=== PATIENT | male | born 1965 | race Two or more races ===

== ENCOUNTER 2017-04-23 09:08 | Emergency (ER) | payer OTHER ==
[~2017-04-23] VITALS: Ht 165.1 cm; Wt 79.4 kg
[2017-04-23 09:22] VITALS: BP 175/96
[2017-04-23] MEDS ORDERED: IPRATROPIUM BROM 0.5 MG/2.5ML INH SOL NEB ONE (12:45)
[2017-04-23] MEDS ORDERED: ALBUTEROL SULF 2.5 MG/0.5ML(0.5%) NEB SOLN NEB ONE (12:45)
== END 2017-04-23 13:34 | disposition home or self-care (01) ==
LOC: ER 09:08
DX: R06.02 Shortness of breath (principal); I10 Essential (primary) hypertension; F17.210 Nicotine dependence, cigarettes, uncomplicated
CPT/HCPCS: 71046; 94640

== ENCOUNTER 2017-05-21 21:25 | Emergency (ER) | payer OTHER ==
[~2017-05-21] VITALS: Ht 165.1 cm; Wt 82.6 kg
[2017-05-21 22:30] LABS: Eosinophils # (auto) 0 uL; Hemoglobin 11.1 g/dL (13.5-17.5); Lymphocytes # (auto) 1.4 uL; Mean Corpuscular Hgb Conc. 33.6 g/dL (32.0-36.0); Monocytes # (auto) 0.4 uL; Neutrophils # (auto) 4.5 uL; Red Blood Cells 3.13 10^6/uL (4.5-5.90)
[2017-05-21 22:32] LABS: Basophils # (auto) 0 uL; Basophils % (auto) 0.7 % (0.0-2.0); Hematocrit 32.9 % (41.0-53.0); Mean Corpuscular Hemoglobin 35.4 pg (28.0-32.0); Mean Corpuscular Volume 105.2 fL (80.0-100.0); Monocytes % (auto) 5.6 % (0.0-12.0); Neutrophils % (auto) 71.7 % (37.0-80.0); Nucleated Red Blood Cells % 0.2 %; Platelet Count (auto) 103 10^3/uL (140-450); Red Cell Distribution Width 14.9 % (11.8-14.3); White Blood Cell 6.3 10^3/uL (4.4-10.8)
[2017-05-21 22:47] LABS: INR 1.23 (0.9-1.15); Partial Thromboplastin Time 27.8 sec (22.64-33.71); Prothrombin Time 13.4 sec (9.37-12.3)
[2017-05-21 22:54] LABS: Alanine Aminotransferase 50 U/L (16-61); Albumin 3.5 g/dL (3.4-5.0); Alkaline Phosphatase 44 U/L (45-117); Anion Gap 10 (5-15); Aspartate Aminotransferase 85 U/L (15-37); BUN/Creatinine Ratio 28.7; Blood Urea Nitrogen 25 mg/dL (7-18); Calcium 8.9 mg/dL (8.5-10.1); Carbon Dioxide 24 mmol/L (21-32); Chloride 102 mmol/L (98-107); GFR African American 118 mL/min; GFR Non-African American 97 mL/min; Glucose 110 mg/dL (74-106); Magnesium 2.4 mg/dL (1.6-2.6); Potassium 4.6 mmol/L (3.5-5.1); Sodium 136 mmol/L (136-145); Total Protein 8.6 g/dL (6.4-8.2)
[2017-05-22] MEDS ORDERED: ALBUTEROL SULF 2.5 MG/0.5ML(0.5%) NEB SOLN NEB ONE (08:00)
[2017-05-22] MEDS ORDERED: IPRATROPIUM BROM 0.5 MG/2.5ML INH SOL NEB ONE (08:00)
[2017-05-22] MEDS ORDERED: PIPERACILLIN-TAZOB 3.375GM 50 ML IV ONE (10:15)
[2017-05-22 11:13] LABS: Urine Bacteria NONE SEEN /hpf (None Seen); Urine Blood Negative /uL (Negative); Urine Specific Gravity 1.022 (1.001-1.035); Urine WBC <1 /hpf (0 - 3)
[2017-05-22 11:44] VITALS: BP 155/90
== END 2017-05-22 11:16 | disposition home or self-care (01) ==
LOC: ER 21:25
DX: R06.02 Shortness of breath (principal); K82.9 Disease of gallbladder, unspecified; I10 Essential (primary) hypertension; F17.210 Nicotine dependence, cigarettes, uncomplicated; R53.1 Weakness
CPT/HCPCS: 36415; 71045; 74176; 76705; 80053; 81001; 83605; 83735; 83880; 84484; 85025; 85610; 85730; 87040; 93005; 94640; 96365; 99285; J2543

== ENCOUNTER 2017-06-17 12:29 | Emergency (ER) | payer OTHER ==
[~2017-06-17] VITALS: Ht 165.1 cm; Wt 79.4 kg
[2017-06-17 13:00] VITALS: BP 142/82
[2017-06-17] MEDS ORDERED: methylPREDNISolone SOD SUCC 125 MG/2 ML VL IM ONE (13:15)
[2017-06-17] MEDS ORDERED: IPRATROPIUM BROM 0.5 MG/2.5ML INH SOL NEB ONE (13:15)
[2017-06-17] MEDS ORDERED: ALBUTEROL SULF 2.5 MG/0.5ML(0.5%) NEB SOLN NEB ONE (13:15)
== END 2017-06-17 14:15 | disposition home or self-care (01) ==
LOC: ER 12:32
DX: J44.9 Chronic obstructive pulmonary disease, unspecified (principal); I10 Essential (primary) hypertension; F17.210 Nicotine dependence, cigarettes, uncomplicated
CPT/HCPCS: 93005; 94640; 96372; 99283; J2930

== ENCOUNTER 2017-06-27 18:16 | Emergency (ER) | payer OTHER ==
[~2017-06-27] VITALS: Ht 165.1 cm; Wt 84.4 kg
[2017-06-27] MEDS ORDERED: methylPREDNISolone SOD SUCC 125 MG/2 ML VL IM ONE (19:45)
[2017-06-27] MEDS ORDERED: ALBUTEROL SULF 2.5 MG/0.5ML(0.5%) NEB SOLN HHN ONE (19:45)
[2017-06-27] MEDS ORDERED: IPRATROPIUM BROM 0.5 MG/2.5ML INH SOL HHN ONE (19:45)
[2017-06-27] MEDS ORDERED: ACETAMINOPHEN 325 MG TAB PO ONE (20:45)
[2017-06-27 22:03] VITALS: BP 131/79
[2017-06-28] MEDS ORDERED: ENAL20TA70 PO (13:49)
[2017-06-28] MEDS ORDERED: SUCR1TAB38 OR (13:49)
[2017-06-28] MEDS ORDERED: METH10CO PO (15:04)
[2017-06-29] MEDS ORDERED: LEVO500T21 PO (10:52)
[2017-06-29] MEDS ORDERED: ALBUAER3 IN (10:53)
== END 2017-06-27 22:35 | disposition home or self-care (01) ==
LOC: ER 18:16
DX: J20.9 Acute bronchitis, unspecified (principal); I10 Essential (primary) hypertension; J44.9 Chronic obstructive pulmonary disease, unspecified; F17.210 Nicotine dependence, cigarettes, uncomplicated
CPT/HCPCS: 71046; 93005; 94644; 96372; 99285; J2930; 94640

== ENCOUNTER 2017-07-07 22:34 | Emergency (ER) | payer OTHER ==
[~2017-07-07] VITALS: Ht 165.1 cm; Wt 83.0 kg
[~2017-07-07 22:34] MED LIST: ALBUAER3 IN; ENAL20TA70 PO; LEVO500T21 PO; METH10CO PO; SUCR1TAB38 OR
[2017-07-08 01:30] LABS: Basophils # (auto) 0.1 uL; Eosinophils # (auto) 0.1 uL; Eosinophils % (auto) 1.3 % (0.0-7.0); Hematocrit 40.7 % (41.0-53.0); Hemoglobin 13.5 g/dL (13.5-17.5); Lymphocytes % (auto) 28.9 % (10.0-50.0); Mean Corpuscular Hemoglobin 33.7 pg (28.0-32.0); Mean Corpuscular Hgb Conc. 33.3 g/dL (32.0-36.0); Mean Corpuscular Volume 101.2 fL (80.0-100.0); Monocytes # (auto) 0.5 uL; Monocytes % (auto) 7.9 % (0.0-12.0); Neutrophils # (auto) 4.3 uL; Neutrophils % (auto) 60.9 % (37.0-80.0); Nucleated Red Blood Cells % 0.1 %; Platelet Count (auto) 138 10^3/uL (140-450); Red Blood Cells 4.02 10^6/uL (4.5-5.90); Red Cell Distribution Width 14.4 % (11.8-14.3)
[2017-07-08 01:49] LABS: Albumin 3.3 g/dL (3.4-5.0); BUN/Creatinine Ratio 9.8
[2017-07-08 01:51] LABS: Total Protein 7.9 g/dL (6.4-8.2)
[2017-07-08] MEDS ORDERED: SODIUM CHLORIDE 0.9% 1,000 ML IV ONE (08:14)
[2017-07-08 09:15] LABS: Magnesium 2.3 mg/dL (1.6-2.6)
[2017-07-08 11:32] VITALS: BP 129/86
== END 2017-07-08 12:53 | disposition home or self-care (01) ==
LOC: ER 22:42
DX: L03.115 Cellulitis of right lower limb (principal); B19.20 Unspecified viral hepatitis C without hepatic coma; F10.20 Alcohol dependence, uncomplicated; E46 Unspecified protein-calorie malnutrition; K76.1 Chronic passive congestion of liver; J44.9 Chronic obstructive pulmonary disease, unspecified; I10 Essential (primary) hypertension
CPT/HCPCS: 36415; 71046; 80053; 83735; 84443; 84484; 85025; 93005; 93971

== ENCOUNTER 2017-08-07 13:26 | Emergency (ER) | payer OTHER ==
[~2017-08-07] VITALS: Ht 165.1 cm; Wt 82.6 kg
[2017-08-07] MEDS ORDERED: SODIUM CHLORIDE 0.9% 500 ML IVB ONE (14:39)
[2017-08-07] MEDS ORDERED: PANTOPRAZOLE 40 MG/10 ML VIAL IV STA (14:39)
[2017-08-07] MEDS ORDERED: ONDANSETRON HCL 4 MG/2 ML VIAL IV ONE (14:45)
[2017-08-07] MEDS ORDERED: MORPHINE SULFATE 8mg/ml INJ SDV IV ONE (14:45)
[2017-08-07 14:48] LABS: Basophils # (auto) 0 uL; Basophils % (auto) 0.9 % (0.0-2.0); Eosinophils # (auto) 0 uL; Eosinophils % (auto) 0.1 % (0.0-7.0); Hematocrit 40.1 % (41.0-53.0); Hemoglobin 13.3 g/dL (13.5-17.5); Lymphocytes # (auto) 0.5 uL; Lymphocytes % (auto) 13.2 % (10.0-50.0); Mean Corpuscular Hemoglobin 33.5 pg (28.0-32.0); Mean Corpuscular Hgb Conc. 33.1 g/dL (32.0-36.0); Mean Corpuscular Volume 101.2 fL (80.0-100.0); Monocytes # (auto) 0.4 uL; Monocytes % (auto) 10.3 % (0.0-12.0); Neutrophils # (auto) 2.6 uL; Neutrophils % (auto) 75.5 % (37.0-80.0); Nucleated Red Blood Cells % 0.1 %; Platelet Count (auto) 105 10^3/uL (140-450); Red Blood Cells 3.96 10^6/uL (4.5-5.90); Red Cell Distribution Width 14.6 % (11.8-14.3); White Blood Cell 3.5 10^3/uL (4.4-10.8)
[2017-08-07 15:14] LABS: Albumin 3.7 g/dL (3.4-5.0); BUN/Creatinine Ratio 8.1; Bilirubin, Total 0.9 mg/dL (0.2-1.0); Calcium 9.3 mg/dL (8.5-10.1); Potassium 4.1 mmol/L (3.5-5.1); Total Protein 8.7 g/dL (6.4-8.2)
[2017-08-07 16:14] VITALS: BP 142/91
== END 2017-08-07 16:39 | disposition home or self-care (01) ==
LOC: ER 13:34
DX: K29.70 Gastritis, unspecified, without bleeding (principal); F11.10 Opioid abuse, uncomplicated; J44.9 Chronic obstructive pulmonary disease, unspecified; E07.89 Other specified disorders of thyroid; I10 Essential (primary) hypertension; F17.210 Nicotine dependence, cigarettes, uncomplicated
CPT/HCPCS: 36415; 71046; 80053; 83690; 85025; 93005; 94761; 96374; 96375; 99285; C9113; J2270; J2405; J7030

== ENCOUNTER 2017-09-02 22:00 | Emergency (ER) | payer OTHER ==
[~2017-09-02] VITALS: Ht 165.1 cm; Wt 83.9 kg
[2017-09-03 02:59] LABS: Basophils # (auto) 0.1 uL; Eosinophils # (auto) 0 uL; Eosinophils % (auto) 0.1 % (0.0-7.0); Hematocrit 39.2 % (41.0-53.0); Hemoglobin 13.1 g/dL (13.5-17.5); Lymphocytes # (auto) 1.3 uL; Lymphocytes % (auto) 16.7 % (10.0-50.0); Mean Corpuscular Hemoglobin 33.1 pg (28.0-32.0); Mean Corpuscular Hgb Conc. 33.4 g/dL (32.0-36.0); Mean Corpuscular Volume 99.2 fL (80.0-100.0); Monocytes # (auto) 0.6 uL; Monocytes % (auto) 7.9 % (0.0-12.0); Neutrophils # (auto) 5.8 uL; Neutrophils % (auto) 74.3 % (37.0-80.0); Nucleated Red Blood Cells % 0.1 %; Platelet Count (auto) 149 10^3/uL (140-450); Red Blood Cells 3.95 10^6/uL (4.5-5.90); Red Cell Distribution Width 14.4 % (11.8-14.3); White Blood Cell 7.8 10^3/uL (4.4-10.8)
[2017-09-03 03:06] LABS: Urine Bacteria NONE SEEN /hpf (None Seen); Urine Blood Negative /uL (Negative); Urine Specific Gravity 1.025 (1.001-1.035); Urine WBC <1 /hpf (0 - 3)
[2017-09-03 03:13] LABS: INR 1.21 (0.9-1.15); Partial Thromboplastin Time 26.1 sec (23.78-33.04); Prothrombin Time 12.8 sec (9.27-12.13)
[2017-09-03 03:17] LABS: Alcohol, Urine < 3.0 mg/dL (0-5); Amphetamine Screen, Urine NEGATIVE (NEGATIVE); Barbiturate Scree,Urine NEGATIVE (NEGATIVE); Benzodiazephine Screen, Urine NEGATIVE (NEGATIVE); Cannabinoid Screen, Urine NEGATIVE (NEGATIVE); Cocaine Screen, Urine NEGATIVE (NEGATIVE); Opiate Scree,Urine POSITIVE (NEGATIVE); Phencyclidine Screen, Urine NEGATIVE (NEGATIVE)
[2017-09-03 03:21] LABS: Alanine Aminotransferase 66 U/L (16-61); Albumin 3.6 g/dL (3.4-5.0); Alkaline Phosphatase 51 U/L (45-117); Anion Gap 10 (5-15); Aspartate Aminotransferase 111 U/L (15-37); BUN/Creatinine Ratio 25.3; Bilirubin, Total 1.9 mg/dL (0.2-1.0); Blood Urea Nitrogen 25 mg/dL (7-18); Carbon Dioxide 28 mmol/L (21-32); Chloride 101 mmol/L (98-107); GFR African American 101 mL/min; GFR Non-African American 84 mL/min; Glucose 118 mg/dL (74-106); Magnesium 2.2 mg/dL (1.6-2.6); Potassium 4.3 mmol/L (3.5-5.1); Sodium 139 mmol/L (136-145); Total Protein 8.9 g/dL (6.4-8.2)
[2017-09-03] MEDS ORDERED: ENALAPRIL MALEATE 10 MG TAB PO ONE (06:00)
[2017-09-03] MEDS ORDERED: PANTOPRAZOLE 40 MG TAB PO ONE (08:45)
[2017-09-03 08:47] VITALS: BP 134/89
== END 2017-09-03 10:32 | disposition home or self-care (01) ==
LOC: ER 22:00
DX: K29.20 Alcoholic gastritis without bleeding (principal); K74.60 Unspecified cirrhosis of liver; F11.20 Opioid dependence, uncomplicated; K75.89 Other specified inflammatory liver diseases; I10 Essential (primary) hypertension; J44.9 Chronic obstructive pulmonary disease, unspecified; E07.89 Other specified disorders of thyroid; F17.210 Nicotine dependence, cigarettes, uncomplicated; Z90.49 Acquired absence of other specified parts of digestive tract
CPT/HCPCS: 36415; 71046; 74176; 80053; 80307; 81001; 83735; 83880; 84484; 85025; 85610; 85730; 86850; 86900; 86901; 93005

== ENCOUNTER 2018-04-29 17:19 | Emergency (ER) | payer OTHER ==
[~2018-04-29] VITALS: Ht 165.1 cm; Wt 84.8 kg
[~2018-04-29 17:19] MED LIST changes: +BICT1TAB PO; +LEVO50TA7 PO; +ONDA-101 SL; +PANT40TA2 PO; +PROP60CA34 PO
[2018-04-29 21:06] VITALS: BP 130/75
[2018-04-29] MEDS ORDERED: ALBUTEROL SULF 2.5 MG/0.5ML(0.5%) NEB SOLN NEB ONE (21:45)
[2018-04-29] MEDS ORDERED: methylPREDNISolone SOD SUCC 125 MG/2 ML VL IM ONE (21:45)
[2018-04-29] MEDS ORDERED: IPRATROPIUM BROM 0.5 MG/2.5ML INH SOL NEB ONE (21:45)
== END 2018-04-29 22:58 | disposition home or self-care (01) ==
LOC: ER 17:25
DX: J44.1 Chronic obstructive pulmonary disease with (acute) exacerbation (principal); F17.210 Nicotine dependence, cigarettes, uncomplicated; F15.10 Other stimulant abuse, uncomplicated; J44.9 Chronic obstructive pulmonary disease, unspecified; I10 Essential (primary) hypertension; Z90.49 Acquired absence of other specified parts of digestive tract
CPT/HCPCS: 71046; 93005; 94640; 96372; 99283; J2930; J7611; J7644

== ENCOUNTER 2018-06-19 07:31 | Emergency (ER) | payer OTHER ==
[~2018-06-19] VITALS: Ht 165.1 cm; Wt 82.6 kg
[2018-06-19 08:21] LABS: Basophils # (auto) 0 uL; Basophils % (auto) 1.4 % (0.0-2.0); Eosinophils # (auto) 0.1 uL; Hematocrit 37.5 % (41.0-53.0); Hemoglobin 12.5 g/dL (13.5-17.5); Lymphocytes # (auto) 0.9 uL; Lymphocytes % (auto) 32.1 % (10.0-50.0); Mean Corpuscular Hemoglobin 33.4 pg (28.0-32.0); Mean Corpuscular Hgb Conc. 33.3 g/dL (32.0-36.0); Mean Corpuscular Volume 100.3 fL (80.0-100.0); Monocytes # (auto) 0.2 uL; Monocytes % (auto) 7.9 % (0.0-12.0); Neutrophils # (auto) 1.5 uL; Neutrophils % (auto) 56.6 % (37.0-80.0); Nucleated Red Blood Cells % 0.2 %; Platelet Count (auto) 67 10^3/uL (140-450); Red Blood Cells 3.74 10^6/uL (4.5-5.90); Red Cell Distribution Width 18.7 % (11.8-14.3); White Blood Cell 2.7 10^3/uL (4.4-10.8)
[2018-06-19 08:37] LABS: Albumin 3.3 g/dL (3.4-5.0); Calcium 8.6 mg/dL (8.5-10.1); Potassium 3.7 mmol/L (3.5-5.1)
[2018-06-19 08:42] LABS: BUN/Creatinine Ratio 15.1; Bilirubin, Total 1.4 mg/dL (0.2-1.0); Total Protein 8.3 g/dL (6.4-8.2)
[2018-06-19] MEDS ORDERED: ENAL2.5T PO (08:45)
[2018-06-19] MEDS ORDERED: SPIR25TA8 PO (08:45)
[2018-06-19] MEDS ORDERED: FERR-20 PO (08:45)
[2018-06-19] MEDS ORDERED: FUROSEMIDE 40 MG/4 ML VIAL IV ONE (09:15)
[2018-06-19 09:33] VITALS: BP 141/89
[2018-06-19 10:53] LABS: Urine Bacteria NONE SEEN /hpf (None Seen); Urine Blood Negative /uL (Negative); Urine Mucus FEW (None Seen); Urine Specific Gravity 1.012 (1.001-1.035); Urine WBC 4 /hpf (0 - 3)
== END 2018-06-19 10:50 | disposition home or self-care (01) ==
LOC: ER 07:33
DX: I11.0 Hypertensive heart disease with heart failure (principal); I50.9 Heart failure, unspecified; J44.9 Chronic obstructive pulmonary disease, unspecified; F17.210 Nicotine dependence, cigarettes, uncomplicated; Z90.49 Acquired absence of other specified parts of digestive tract
CPT/HCPCS: 36415; 71045; 80053; 81001; 83880; 85025; 93005; 96374; 99284; J1940

== ENCOUNTER 2018-07-18 09:15 | Emergency (ER) | payer OTHER ==
[~2018-07-18] VITALS: Ht 165.1 cm; Wt 83.9 kg
[~2018-07-18 09:15] MED LIST changes: +ENAL2.5T PO; -ENAL20TA70 PO; +FERR-20 PO; -LEVO50TA7 PO; -METH10CO PO; -PROP60CA34 PO; +SPIR25TA8 PO; -SUCR1TAB38 OR
[2018-07-18 10:12] VITALS: BP 139/84
== END 2018-07-18 10:52 | disposition home or self-care (01) ==
LOC: ER 09:15
DX: L01.00 Impetigo, unspecified (principal); J44.9 Chronic obstructive pulmonary disease, unspecified; I11.0 Hypertensive heart disease with heart failure; I50.9 Heart failure, unspecified; E07.9 Disorder of thyroid, unspecified; F17.210 Nicotine dependence, cigarettes, uncomplicated; Z90.49 Acquired absence of other specified parts of digestive tract; Z79.899 Other long term (current) drug therapy

== ENCOUNTER 2018-08-20 06:55 | Emergency (ER) | payer OTHER ==
[~2018-08-20] VITALS: Ht 165.1 cm; Wt 83.9 kg
[2018-08-20 08:08] LABS: Eosinophils # (auto) 0.1 uL; Monocytes # (auto) 0.3 uL; Neutrophils # (auto) 1.8 uL; Nucleated Red Blood Cells % 0.1 %
[2018-08-20 08:09] LABS: Basophils # (auto) 0 uL; Basophils % (auto) 1.1 % (0.0-2.0); Eosinophils % (auto) 2.5 % (0.0-7.0); Hematocrit 41.3 % (41.0-53.0); Hemoglobin 14.2 g/dL (13.5-17.5); Lymphocytes # (auto) 1.6 uL; Mean Corpuscular Hemoglobin 35.5 pg (28.0-32.0); Mean Corpuscular Hgb Conc. 34.4 g/dL (32.0-36.0); Mean Corpuscular Volume 103.5 fL (80.0-100.0); Monocytes % (auto) 7.3 % (0.0-12.0); Neutrophils % (auto) 47.1 % (37.0-80.0); Platelet Count (auto) 83 10^3/uL (140-450); Red Blood Cells 3.99 10^6/uL (4.5-5.90); Red Cell Distribution Width 13.9 % (11.8-14.3); White Blood Cell 3.9 10^3/uL (4.4-10.8)
[2018-08-20 08:22] LABS: Albumin 3.4 g/dL (3.4-5.0); Calcium 8.7 mg/dL (8.5-10.1); Potassium 3.7 mmol/L (3.5-5.1)
[2018-08-20 08:25] LABS: BUN/Creatinine Ratio 6.8; Bilirubin, Total 1.1 mg/dL (0.2-1.0); Total Protein 8.6 g/dL (6.4-8.2)
[2018-08-20] MEDS ORDERED: chlordiazePOXIDE HCL 5 MG CAP PO ONE (08:45)
[2018-08-20] MEDS ORDERED: FUROSEMIDE 20 MG TAB PO ONE (09:00)
[2018-08-20 09:02] LABS: Urine Bacteria NONE SEEN /hpf (None Seen); Urine Blood Negative /uL (Negative); Urine Specific Gravity 1.004 (1.001-1.035); Urine WBC <1 /hpf (0 - 3)
[2018-08-20 10:57] VITALS: BP 127/80
== END 2018-08-20 11:11 | disposition home or self-care (01) ==
LOC: ER 06:55
DX: M79.605 Pain in left leg (principal); M79.604 Pain in right leg; K70.30 Alcoholic cirrhosis of liver without ascites; I11.0 Hypertensive heart disease with heart failure; F17.210 Nicotine dependence, cigarettes, uncomplicated; I50.9 Heart failure, unspecified; J44.9 Chronic obstructive pulmonary disease, unspecified; Z86.39 Personal history of other endocrine, nutritional and metabolic disease; Z90.49 Acquired absence of other specified parts of digestive tract
CPT/HCPCS: 36415; 80053; 81001; 83880; 85025; 94761

== ENCOUNTER 2018-09-05 06:46 | Inpatient (IN) | payer OTHER | END 2018-09-07 12:50 | disposition home or self-care (01) | LOC: ER 06:46 → TELE 12:13 → TELE-WESTW 14:14 | DX: I85.01 Esophageal varices with bleeding (principal); B20 Human immunodeficiency virus [HIV] disease; I50.22 Chronic systolic (congestive) heart failure; K72.90 Hepatic failure, unspecified without coma; K74.60 Unspecified cirrhosis of liver; D53.9 Nutritional anemia, unspecified; B19.20 Unspecified viral hepatitis C without hepatic coma ==